=== PATIENT | female | born 1990 | race Hispanic/Latino ===

== ENCOUNTER 2017-05-15 19:57 | Outpatient (CLI) | payer BC, MEDICAID ==
[2017-05-15 20:08] VITALS: BP 111/68
== END 2017-05-16 00:20 | disposition home or self-care (01) ==
LOC: TRG 19:57
PROVIDERS: ATTEND Obstetrics & Gynecology
DX: O47.1 False labor at or after 37 completed weeks of gestation (principal); O99.333 Smoking (tobacco) complicating pregnancy, third trimester; F17.200 Nicotine dependence, unspecified, uncomplicated; Z3A.37 37 weeks gestation of pregnancy

== ENCOUNTER 2017-05-22 19:19 | Inpatient (IN) | payer BC, MEDICAID ==
--- NOTE | 2017-05-22 20:24 | History and Physical Report ---
History of Present Illness Date of examination: 05/22/17 History of present illness: Patient presented to labor and delivery complaining of contractions every 4-6 minutes for over an hour. Initial exam in triage 5 cm. Menstrual History Regularity: regular Menses every: 28-30 days Duration: 6 LMP: 08/23/2016 LMP reliability: definite LMP character: heavier test type: urine test BC at conception: none Planned ? yes EDC Calculations LMP: 05/30/2017 Past History : 2 Term Births: 1 Living Children: 1 Para: 1 Mult. Births: 0 Prev : 0 Prev. attempt? 0 Aborta: 0 Elect. Ab: 0 Spont. Ab: 0 Ectopics: 0 # 1 Delivery date: 2006 Weeks Gestation: 40+1 labor: no Delivery type: Delivery location: [facility] Sex: Male weight: 8#7 Comments: no complications Past Medical History: Anxiety Bipolar Disease Depression OCD - no currently on meds or in couseling Past Surgical History: ear tubes T&A - age 13 Past Medical History Surgery (Non-manager new product): ear tubes T&A - age 13 Abnormal PAP: negative AVA Exposure: negative Infertility: negative Uterine Anomaly: negative Uterine Surgery (not C/S): negative Other Gynecologic Problems: negative Family Hx: Father - HTN PGM - DM no fx breast, uterine or ovarian cancer Social Hx: works from home for [employer] no smoking, drinking or drug use. Infection History Hx of STD: chlamydia HIV Risk Eval: no Hepatitis B Risk Eval: low risk Personal hx. of genital herpes: no Partner hx. of genital herpes: no Rash, Viral, or Febrile illness since last LMP? no Varicella/Chicken Pox Status: Previous Disease Genetic History Congenital Heart Defect: Mom: no Dad: no Cailin Disease: Mom: no Dad: no Thalassemia Mom: no Dad: no Neural Tube Defect Mom: no Dad: no Down's Syndrome Mom: no Dad: no Jordi-Sachs Mom: no Dad: no Sickle Cell Disease/Trait Mom: no Dad: no Hemophilia Mom: no Dad: no Muscular Dystrophy Mom: no Dad: no Cystic Fibrosis Mom: no Dad: no Valier Chorea Mom: no Dad: no Mental Retardation Mom: no Dad: no Fragile X Mom: no Dad: no Other Genetic/Chromosomal Disorder Mom: no Dad: no Child w/other defect Mom: no Dad: no Enviromental Exposures Xray Exposure: no Medication, drug, or alcohol use since LMP: no Chemical/Other Exposure: no Exposure to Cat Liter: no Hx of Parvovirus (Fifth Disease): no Occupational Exposure to Children: none Current Allergies (reviewed today): No known allergies Past History Past Medical History: other (See HPI) Past Surgical History: other (See HPI) 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 TRIMMER History: other (See HPI) Family/Genetic History: other (See HPI) Social history: other (See HPI) - Obstetrical History Expected Date of Delivery: 05/30/17 Actual Gestation: 39 Week(s) 0 Day(s) : 2 Para: 1 Hx # Term Pregnancies: 1 Number of Pregnancies: 0 Spontaneous Abortions: 0 Induced : 0 Number of Living Children: 1 Medications and Allergies Allergies Allergy/AdvReac Type Severity Reaction Status Date / Time No Known Allergies Allergy Verified 05/22/17 20:45 Home Medications Medication Instructions Recorded Confirmed Last Taken Type Tablet 1 tab PO QDAY 05/22/17 05/22/17 05/22/17 09:00 History 1 - Vital Signs Vital signs: Vital Signs Pulse BP 81 110/71 05/22/17 19:40 05/22/17 19:40 Temp Pulse Resp BP Pulse Ox 98.3 F 81 18 110/71 05/22/17 19:43 05/22/17 19:43 05/22/17 19:43 05/22/17 19:43 - Physical Exam Breasts: Positive: deferred Cardiovascular: Regular rate Lungs: Positive: Normal air movement Abdomen: Positive: normal appearance, soft Cervix: Positive: other (per RN) Results Result Diagrams: 05/22/17 20:10 All other labs normal. Assessment and Plan - Patient Problems (1) Active labor at term Current Visit: Yes Status: Acute Plan to address problem: Admitted to labor and delivery follow labor protocol (2) Bipolar 1 disorder Current Visit: Yes Status: Chronic (3) Anxiety Current Visit: Yes Status: Chronic (4) Obsessive compulsive disorder Current Visit: Yes Status: Chronic Qualifiers: Obsessive-compulsive disorder type: unspecified Qualified Code(s): F42.9 - Obsessive-compulsive disorder, unspecified (5) Group B streptococcal carriage complicating Current Visit: Yes Status: Chronic Plan to address problem: Prophylactic antibiotics
[2017-05-22] MEDS ORDERED: LACTATED RINGERS 1,000 ML ONE (20:28)
[2017-05-22] MEDS ORDERED: STADOL IV PRN (20:31)
[2017-05-22] MEDS ORDERED: XYLOCAINE 2% INFILTRATI ONE (20:31)
[2017-05-22] MEDS ORDERED: BRETHINE SUB-Q PRN (20:31)
[2017-05-22] MEDS ORDERED: ePHEDrine SULFATE IV PRN ×2 (20:31→21:53)
[2017-05-22] MEDS ORDERED: PHENERGAN PO PRN (20:31)
[2017-05-22] MEDS: LACTATED RINGERS 1,000 ML IV SCH ×4 (20:51→23:08)
[2017-05-22 20:55] LABS: Hematocrit 36.1 % (30.3-42.9); Hemoglobin 12.2 gm/dl (10.1-14.3); Mean Corpuscular HGB Conc 34 % (30-34); Mean Corpuscular Hemoglobin 32 pg (28-32); Mean Corpuscular Volume 96 fl (79-97); Platelet Count 252 K/mm3 (140-440); Red Blood Count 3.77 M/mm3 (3.65-5.03); Red Cell Distribution Width 13.6 % (13.2-15.2)
[2017-05-22] MEDS ORDERED: NARCAN 2 MG/2 ML IV PRN (21:53)
[2017-05-22] MEDS ORDERED: fentaNYL-BUPIV 2 MCG/ML-0.125% 200 MCG/100 ML BAG EPIDURAL SCH (22:00)
[2017-05-22] MEDS ORDERED: AMPICILLIN/NS 1 GM/50 ML 1 GM/50 ML BAG IV SCH (22:00)
[2017-05-22] MEDS ORDERED: POLYCILLIN/NS 2 GM/100 ML 2 GM/100 ML BAG IV SCH (23:00)
--- NOTE | 2017-05-23 02:54 | Event Note ---
Date: 05/23/17 Patient's cervix now 6 cm 80% effaced -1 station. Artificial rupture of membranes revealed clear fluid and intrauterine pressure catheter and scalp electrode placed. We'll continue expectant management possible augmentation Pitocin
--- NOTE | 2017-05-23 05:29 | Progress Note ---
Assessment and Plan - Patient Problems (1) Active labor at term Onset Date: ~05/23/17 Current Visit: Yes Status: Acute Plan to address problem: Pt very anxious C/O urge to push SVE anterior lip, 100,0 Anticipate delivery. Pt has received 2 doses of antibiotic Subjective - Subjective Date of service: 05/23/17 (pt c/o urge to push) Principal diagnosis: IUP @ 39 weeks Labor; GBS+ Patient reports: movement normal Objective - Vital Signs Vital Signs: Vital Signs - 12hr 05/22/17 05/22/17 05/22/17 19:40 19:43 20:38 Temperature 98.3 F 98.9 F Pulse Rate 81 81 70 Respiratory 18 18 Rate Blood Pressure 110/71 Blood Pressure 110/71 110/80 [Left] O2 Sat by Pulse Oximetry 05/22/17 05/22/17 05/22/17 20:51 20:56 21:01 Temperature Pulse Rate 77 71 69 Respiratory Rate Blood Pressure Blood Pressure [Left] O2 Sat by Pulse 96 97 97 Oximetry 05/22/17 05/22/17 05/22/17 21:06 21:11 21:16 Temperature Pulse Rate 68 74 68 Respiratory Rate Blood Pressure Blood Pressure [Left] O2 Sat by Pulse 97 97 96 Oximetry 05/22/17 05/22/17 05/22/17 21:21 21:26 21:31 Temperature Pulse Rate 74 69 70 Respiratory Rate Blood Pressure Blood Pressure [Left] O2 Sat by Pulse 97 96 97 Oximetry 05/22/17 05/22/17 05/22/17 21:36 21:37 21:44 Temperature Pulse Rate 72 68 73 Respiratory Rate Blood Pressure 115/67 Blood Pressure [Left] O2 Sat by Pulse 97 98 Oximetry 05/22/17 05/22/17 05/22/17 21:49 21:54 21:57 Temperature Pulse Rate 69 71 71 Respiratory Rate Blood Pressure 96/60 Blood Pressure [Left] O2 Sat by Pulse 98 98 Oximetry 05/22/17 05/22/17 05/22/17 21:58 21:59 22:00 Temperature Pulse Rate 71 68 73 Respiratory Rate Blood Pressure 102/60 107/67 Blood Pressure [Left] O2 Sat by Pulse 98 Oximetry 05/22/17 05/22/17 05/22/17 22:02 22:04 22:06 Temperature Pulse Rate 74 101 H 82 Respiratory Rate Blood Pressure 108/66 108/71 112/75 Blood Pressure [Left] O2 Sat by Pulse 98 Oximetry 05/22/17 05/22/17 05/22/17 22:08 22:09 22:10 Temperature Pulse Rate 75 77 82 Respiratory Rate Blood Pressure 112/67 117/73 Blood Pressure [Left] O2 Sat by Pulse 97 Oximetry 05/22/17 05/22/17 05/22/17 22:13 22:14 22:17 Temperature Pulse Rate 113 H 109 H 81 Respiratory Rate Blood Pressure 121/76 115/56 Blood Pressure [Left] O2 Sat by Pulse 91 94 Oximetry 05/22/17 05/22/17 05/22/17 22:18 22:19 22:20 Temperature Pulse Rate 72 79 83 Respiratory Rate Blood Pressure 115/58 114/55 Blood Pressure [Left] O2 Sat by Pulse 97 Oximetry 05/22/17 05/22/17 05/22/17 22:22 22:24 22:26 Temperature Pulse Rate 76 71 73 Respiratory Rate Blood Pressure 108/54 116/54 112/55 Blood Pressure [Left] O2 Sat by Pulse 98 Oximetry 05/22/17 05/22/17 05/22/17 22:28 22:29 22:30 Temperature Pulse Rate 86 78 75 Respiratory Rate Blood Pressure 114/56 107/64 Blood Pressure [Left] O2 Sat by Pulse 98 Oximetry 05/22/17 05/22/17 05/22/17 22:33 22:34 22:36 Temperature Pulse Rate 81 79 74 Respiratory Rate Blood Pressure 114/63 105/59 111/60 Blood Pressure [Left] O2 Sat by Pulse 97 Oximetry 05/22/17 05/22/17 05/22/17 22:38 22:39 22:40 Temperature Pulse Rate 83 83 71 Respiratory Rate Blood Pressure 106/56 108/58 Blood Pressure [Left] O2 Sat by Pulse 96 Oximetry 05/22/17 05/22/17 05/22/17 22:42 22:44 22:46 Temperature Pulse Rate 72 73 70 Respiratory Rate Blood Pressure 106/59 105/57 100/56 Blood Pressure [Left] O2 Sat by Pulse 97 Oximetry 05/22/17 05/22/17 05/22/17 22:49 22:54 22:57 Temperature Pulse Rate 76 71 75 Respiratory Rate Blood Pressure 120/59 112/57 Blood Pressure [Left] O2 Sat by Pulse 97 97 Oximetry 05/22/17 05/22/17 05/22/17 22:59 23:01 23:02 Temperature Pulse Rate 72 68 69 Respiratory Rate Blood Pressure 106/56 101/56 Blood Pressure [Left] O2 Sat by Pulse 96 Oximetry 05/22/17 05/22/17 05/22/17 23:04 23:08 23:09 Temperature Pulse Rate 68 69 72 Respiratory Rate Blood Pressure 119/55 Blood Pressure [Left] O2 Sat by Pulse 96 98 Oximetry 05/22/17 05/22/17 05/22/17 23:14 23:19 23:21 Temperature Pulse Rate 64 65 67 Respiratory Rate Blood Pressure 107/56 Blood Pressure [Left] O2 Sat by Pulse 98 97 Oximetry 05/22/17 05/22/17 05/22/17 23:24 23:26 23:27 Temperature Pulse Rate 71 75 67 Respiratory Rate Blood Pressure 119/59 Blood Pressure [Left] O2 Sat by Pulse 96 93 Oximetry 05/22/17 05/22/17 05/22/17 23:29 23:32 23:34 Temperature Pulse Rate 68 67 65 Respiratory Rate Blood Pressure 109/62 Blood Pressure [Left] O2 Sat by Pulse 96 97 Oximetry 05/22/17 05/22/17 05/22/17 23:39 23:44 23:46 Temperature Pulse Rate 71 66 68 Respiratory Rate Blood Pressure 112/55 Blood Pressure [Left] O2 Sat by Pulse 92 96 94 Oximetry 05/22/17 05/22/17 05/22/17 23:49 23:51 23:54 Temperature Pulse Rate 69 68 69 Respiratory Rate Blood Pressure 111/53 Blood Pressure [Left] O2 Sat by Pulse 95 92 94 Oximetry 05/22/17 05/22/17 05/23/17 23:56 23:59 00:04 Temperature Pulse Rate 68 66 69 Respiratory Rate Blood Pressure 106/63 Blood Pressure [Left] O2 Sat by Pulse 96 95 Oximetry 05/23/17 05/23/17 05/23/17 00:09 00:10 00:14 Temperature Pulse Rate 71 68 65 Respiratory Rate Blood Pressure 107/54 Blood Pressure [Left] O2 Sat by Pulse 96 94 95 Oximetry 05/23/17 05/23/17 05/23/17 00:16 00:19 00:24 Temperature Pulse Rate 71 67 66 Respiratory Rate Blood Pressure Blood Pressure [Left] O2 Sat by Pulse 94 95 97 Oximetry 05/23/17 05/23/17 05/23/17 00:25 00:28 00:29 Temperature Pulse Rate 66 70 65 Respiratory Rate Blood Pressure 91/50 Blood Pressure [Left] O2 Sat by Pulse 94 95 Oximetry 05/23/17 05/23/17 05/23/17 00:32 00:34 00:37 Temperature Pulse Rate 70 65 70 Respiratory Rate Blood Pressure Blood Pressure [Left] O2 Sat by Pulse 94 95 94 Oximetry 05/23/17 05/23/17 05/23/17 00:39 00:43 00:44 Temperature Pulse Rate 68 72 73 Respiratory Rate Blood Pressure Blood Pressure [Left] O2 Sat by Pulse 96 94 95 Oximetry 05/23/17 05/23/17 05/23/17 00:49 00:53 00:54 Temperature Pulse Rate 68 68 74 Respiratory Rate Blood Pressure Blood Pressure [Left] O2 Sat by Pulse 95 94 94 Oximetry 05/23/17 05/23/17 05/23/17 00:58 00:59 01:04 Temperature Pulse Rate 66 64 70 Respiratory Rate Blood Pressure Blood Pressure [Left] O2 Sat by Pulse 94 94 95 Oximetry 05/23/17 05/23/17 05/23/17 01:06 01:09 01:12 Temperature Pulse Rate 58 L 64 57 L Respiratory Rate Blood Pressure Blood Pressure [Left] O2 Sat by Pulse 94 94 93 Oximetry 05/23/17 05/23/17 05/23/17 01:14 01:17 01:19 Temperature Pulse Rate 64 60 65 Respiratory Rate Blood Pressure Blood Pressure [Left] O2 Sat by Pulse 95 94 93 Oximetry 05/23/17 05/23/17 05/23/17 01:20 01:23 01:24 Temperature 98.6 F Pulse Rate 67 63 67 Respiratory 16 Rate Blood Pressure Blood Pressure 102/58 [Left] O2 Sat by Pulse 95 94 95 Oximetry 05/23/17 05/23/17 05/23/17 01:25 01:29 01:32 Temperature Pulse Rate 67 64 69 Respiratory Rate Blood Pressure 102/58 Blood Pressure [Left] O2 Sat by Pulse 96 94 Oximetry 05/23/17 05/23/17 05/23/17 01:34 01:39 01:44 Temperature Pulse Rate 73 65 65 Respiratory Rate Blood Pressure Blood Pressure [Left] O2 Sat by Pulse 96 94 97 Oximetry 05/23/17 05/23/17 05/23/17 01:45 01:49 01:54 Temperature Pulse Rate 70 69 64 Respiratory Rate Blood Pressure 99/54 Blood Pressure [Left] O2 Sat by Pulse 96 97 Oximetry 05/23/17 05/23/17 05/23/17 01:59 02:04 02:09 Temperature Pulse Rate 66 82 61 Respiratory Rate Blood Pressure Blood Pressure [Left] O2 Sat by Pulse 97 99 95 Oximetry 05/23/17 05/23/17 05/23/17 02:14 02:15 02:19 Temperature Pulse Rate 70 66 76 Respiratory Rate Blood Pressure Blood Pressure [Left] O2 Sat by Pulse 97 94 95 Oximetry 05/23/17 05/23/17 05/23/17 02:24 02:27 02:29 Temperature Pulse Rate 71 71 75 Respiratory Rate Blood Pressure Blood Pressure [Left] O2 Sat by Pulse 94 94 95 Oximetry 05/23/17 05/23/17 05/23/17 02:34 02:39 02:44 Temperature Pulse Rate 66 69 64 Respiratory Rate Blood Pressure Blood Pressure [Left] O2 Sat by Pulse 94 94 97 Oximetry 05/23/17 05/23/17 05/23/17 02:45 02:49 02:54 Temperature Pulse Rate 68 72 65 Respiratory Rate Blood Pressure 102/58 Blood Pressure [Left] O2 Sat by Pulse 97 97 Oximetry 05/23/17 05/23/17 05/23/17 02:59 03:04 03:09 Temperature Pulse Rate 66 62 63 Respiratory Rate Blood Pressure Blood Pressure [Left] O2 Sat by Pulse 97 97 97 Oximetry 05/23/17 05/23/17 05/23/17 03:14 03:19 03:24 Temperature Pulse Rate 68 63 67 Respiratory Rate Blood Pressure Blood Pressure [Left] O2 Sat by Pulse 97 97 96 Oximetry 05/23/17 05/23/17 05/23/17 03:29 03:34 03:39 Temperature Pulse Rate 66 62 63 Respiratory Rate Blood Pressure Blood Pressure [Left] O2 Sat by Pulse 96 98 97 Oximetry 05/23/17 05/23/17 05/23/17 03:44 03:49 03:54 Temperature Pulse Rate 63 67 63 Respiratory Rate Blood Pressure 104/64 Blood Pressure [Left] O2 Sat by Pulse 97 96 96 Oximetry 05/23/17 05/23/17 05/23/17 03:59 04:04 04:09 Temperature Pulse Rate 64 63 65 Respiratory Rate Blood Pressure Blood Pressure [Left] O2 Sat by Pulse 96 97 97 Oximetry 05/23/17 05/23/17 05/23/17 04:14 04:19 04:24 Temperature Pulse Rate 63 66 70 Respiratory Rate Blood Pressure Blood Pressure [Left] O2 Sat by Pulse 96 94 97 Oximetry 05/23/17 05/23/17 05/23/17 04:29 04:30 04:34 Temperature Pulse Rate 65 67 70 Respiratory Rate Blood Pressure Blood Pressure [Left] O2 Sat by Pulse 98 94 96 Oximetry 05/23/17 05/23/17 05/23/17 04:39 04:44 04:46 Temperature Pulse Rate 69 76 69 Respiratory Rate Blood Pressure 102/56 Blood Pressure [Left] O2 Sat by Pulse 96 98 Oximetry 05/23/17 05/23/17 05/23/17 04:49 04:54 04:56 Temperature Pulse Rate 75 67 72 Respiratory Rate Blood Pressure Blood Pressure [Left] O2 Sat by Pulse 96 97 94 Oximetry 05/23/17 05/23/17 05/23/17 04:59 05:01 05:04 Temperature Pulse Rate 69 69 70 Respiratory Rate Blood Pressure Blood Pressure [Left] O2 Sat by Pulse 97 94 96 Oximetry 05/23/17 05/23/17 05/23/17 05:08 05:09 05:14 Temperature Pulse Rate 75 74 68 Respiratory Rate Blood Pressure Blood Pressure [Left] O2 Sat by Pulse 93 97 97 Oximetry 05/23/17 05/23/17 05/23/17 05:15 05:19 05:24 Temperature Pulse Rate 70 67 72 Respiratory Rate Blood Pressure Blood Pressure [Left] O2 Sat by Pulse 93 96 98 Oximetry - Exam Breasts: deferred Cardiovascular: Regular rate Lungs: Normal air movement Abdomen: Present: normal appearance, soft. Absent: distention, tenderness Vulva: both: normal Uterus: Present: normal FHR: auscultation normal, category 1 Uterine Contraction Monitor Mode: External Cervical Dilatation: 9.7 Cervical Effacement Percentage: 100 station: 0 Uterine Contraction Pattern: Regular Uterine Tone Measurement Phase: Resting Uterine Contraction Intensity: Moderate Extremities: normal Deep Tendon Reflex Grade: Normal +2 - Labs Labs: Abnormal Labs 05/22/17 20:10 WBC 12.0 H Laboratory Results - last 24 hr 04/01/18 04/01/18 20:10 20:10 WBC 12.0 H RBC 3.77 Hgb 12.2 Hct 36.1 MCV 96 MCH 32 MCHC 34 RDW 13.6 Plt Count 252 Blood Type A POSITIVE Antibody Screen Negative
[2017-05-23] MEDS: PITOCin/NS 20 UNIT/1000ML DRIP 20 UNITS/1,000 ML BAG IV SCH ×2 (05:55→06:38)
[2017-05-23] MEDS ORDERED: TUCKS PAD TP PRN (06:00)
[2017-05-23] MEDS ORDERED: SODIUM CHLORIDE FLUSH SYRINGE 10 ML IV PRN (06:00)
[2017-05-23] MEDS ORDERED: DULCOLAX PR PRN (06:00)
[2017-05-23] MEDS ORDERED: TORADOL IV PRN (06:00)
[2017-05-23] MEDS ORDERED: MILK OF MAGNESIA PO PRN (06:00)
[2017-05-23] MEDS ORDERED: ZOFRAN IV PRN (06:00)
[2017-05-23] MEDS ORDERED: LANSINOH TP PRN (06:00)
[2017-05-23] MEDS ORDERED: BENADRYL PO PRN (06:00)
--- NOTE | 2017-05-23 06:08 | Procedure Note ---
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 Pit IVFs 8/9, EBL 300, Wgt 8-8 Mom and baby remain LDR stable - A at 1 minute: 8 at 5 minutes: 9 Infant Gender: Female (wgt 8-8)
[2017-05-23] MEDS: MOTRIN PO SCH ×3 (09:11→22:33)
[2017-05-23] MEDS ORDERED: NORCO 5/325 PO NR (10:00)
[2017-05-23 19:18] LABS: Hematocrit 31.6 % (30.3-42.9); Hemoglobin 10.6 gm/dl (10.1-14.3)
[2017-05-24] MEDS: MOTRIN PO SCH (05:16)
[2017-05-24] MEDS ORDERED: M-M-R II VACCINE SUB-Q ONE (06:00)
[2017-05-24] MEDS ORDERED: BOOSTRIX IM ONE (06:00)
--- NOTE | 2017-05-24 07:56 | Discharge Summary ---
Providers - Providers Date of Admission: 05/22/17 20:25 Date of discharge: 05/24/17 (desires d/c home) Attending physician: ALFREDO RINCON 05/23/17 13:20 Consult to Case Management [CONS] Routine Services Needed at Discharge: Implant Polisher Notified:: Mikki Phone number called:: [phone] Was contact made?: Yes If yes, spoke with:: Mikki Primary care physician: ALFREDO RINCON Hospitalization Reason for admission: Labor Condition: Good Procedures: uncomplicated vaginal delivery Hospital course: uncomplicated labor, delivery and course Disposition: DC- TO HOME OR SELFCARE - Discharge Diagnoses (1) Spontaneous vaginal delivery Status: Acute Core Measure Documentation - Palliative Care Palliative Care/ Comfort Measures: Not Applicable - Core Measures Any of the following diagnoses?: none Exam - Constitutional Vitals: Temp Pulse Resp BP Pulse Ox 98.4 F 64 20 97/57 96 05/24/17 00:24 05/24/17 00:24 05/24/17 05:16 05/24/17 00:24 05/24/17 00:24 General appearance: Present: no acute distress, well-nourished - EENT Eyes: Present: PERRL ENT: hearing intact, clear oral mucosa - Neck Neck: Present: supple, normal ROM - Respiratory Respiratory effort: normal Respiratory: bilateral: CTA - Cardiovascular Heart Sounds: Present: S1 & S2. Absent: rub, click - Extremities Extremities: pulses symmetrical, No edema Peripheral Pulses: within normal limits - Abdominal General gastrointestinal: Present: soft, non-tender, non-distended, normal bowel sounds Female genitourinary: Present: normal - Integumentary Integumentary: Present: clear, warm, dry - Musculoskeletal Musculoskeletal: gait normal, strength equal bilaterally - Psychiatric Psychiatric: appropriate mood/affect, intact judgment & insight - Neurologic Neurologic: CNII-XII intact, moves all extremities - Additional findings Additional findings: patient doing well, request d/c home today. Lochia scant, Fundus firm, , VSSAF, H&H 10.6/31.6. plan for tubal ligation, f/u 4 weeks in office. Plan Activity: no restrictions Diet: regular Follow up with: ALFREDO RINCON MD [Primary Care Provider] - 06/27/17 (Congratulation! Please call [phone] to schedule your visit in 4 weeks. Call for any questions or concerns.)
[2017-05-24] MEDS: TYLENOL PO PRN ×2 (08:13→14:14)
[2017-05-24 12:19] VITALS: BP 100/55
== END 2017-05-24 16:30 | disposition home or self-care (01) | DRG 775 ==
LOC: TRG 19:19 → LD 20:25 → OB 05-23 08:54
PROVIDERS: ADMIT Obstetrics & Gynecology; ATTEND Obstetrics & Gynecology
PROC: 10E0XZZ Delivery of Products of Conception, External Approach (ICD-10-PCS; principal; 2017-05-23)
PROC: 3E0R3BZ Introduction of Anesthetic Agent into Spinal Canal, Percutaneous Approach (ICD-10-PCS; 2017-05-23)
PROC: 00HU33Z Insertion of Infusion Device into Spinal Canal, Percutaneous Approach (ICD-10-PCS; 2017-05-23)
PROC: 3E0234Z Introduction of Serum, Toxoid and Vaccine into Muscle, Percutaneous Approach (ICD-10-PCS; 2017-05-23)
DX: O69.81X0 Labor and delivery complicated by cord around neck, without compression, not applicable or unspecified (principal); O99.344 Other mental disorders complicating childbirth; F41.9 Anxiety disorder, unspecified; F31.9 Bipolar disorder, unspecified; O99.824 Streptococcus B carrier state complicating childbirth; F42.9 Obsessive-compulsive disorder, unspecified; Z3A.39 39 weeks gestation of pregnancy; Z37.0 Single live birth; Z23 Encounter for immunization
CPT/HCPCS: 36415; 85014; 85018; 85027; 86850; 86900; 86901; 90471; 90707; 90715; 99211; A6250; G0463; J0290; J2590; J7120

== ENCOUNTER 2017-07-15 09:03 | Day surgery (SDC) | payer BC, MEDICAID ==
--- NOTE | 2017-07-14 16:11 | History and Physical Report ---
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 Infection History Hx of STD: chlamydia HIV Risk Eval: no Hepatitis B Risk Eval: low risk Personal hx. of genital herpes: no Partner hx. of genital herpes: no Rash, Viral, or Febrile illness since last LMP? no Varicella/Chicken Pox Status: Previous Disease Genetic History Congenital Heart Defect: Mom: no Dad: no Cailin Disease: Mom: no Dad: no Thalassemia Mom: no Dad: no Neural Tube Defect Mom: no Dad: no Down's Syndrome Mom: no Dad: no Jordi-Sachs Mom: no Dad: no Sickle Cell Disease/Trait Mom: no Dad: no Hemophilia Mom: no Dad: no Muscular Dystrophy Mom: no Dad: no Cystic Fibrosis Mom: no Dad: no [place] Chorea Mom: no Dad: no Mental Retardation Mom: no Dad: no Fragile X Mom: no Dad: no Other Genetic/Chromosomal Disorder Mom: no Dad: no Child w/other defect Mom: no Dad: no Enviromental Exposures Xray Exposure: no Medication, drug, or alcohol use since LMP: no Chemical/Other Exposure: no Exposure to Cat Liter: no Hx of Parvovirus (Fifth Disease): no Occupational Exposure to Children: none Active Medications (reviewed today): None Current Allergies (reviewed today): No known allergies Past History Past Medical History: other (see hpi) Past Surgical History: other (see hpi) [employer] History: denies: other (see hpi) Family/Genetic History: denies: other (see hpi) - Obstetrical History : 2 Para: 2 Number of Living Children: 2 Medications and Allergies Allergies Allergy/AdvReac Type Severity Reaction Status Date / Time No Known Allergies Allergy Verified 05/22/17 20:45 Home Medications Medication Instructions Recorded Confirmed Last Taken Type Tablet 1 tab PO QDAY 05/22/17 05/22/17 05/22/17 09:00 History 1 Ibuprofen [Motrin 800 MG tab] 800 mg PO Q8HR PRN #30 tablet 05/24/17 Unknown Rx Review of Systems All systems: negative - Physical Exam Breasts: Positive: deferred Cardiovascular: Normal S1, Normal S2 Lungs: Positive: Clear to auscultation, Normal air movement Abdomen: Positive: normal appearance, soft. Negative: distention, tenderness, guarding Genitourinary (Female): Positive: other (deferred until eua) Deep Tendon Reflex Grade: Normal +2 Results All other labs normal. Assessment and Plan - Patient Problems (1) Encounter for sterilization Status: Acute Plan to address problem: -I d/w methods of tubal ligation. All risk/benefits/alternatives were d/w pt and questions were addressed and answered. Pt desies a salpingectomy. Consent signed and placed on the chart. -to OR for laproscopic salpingectomy
[~2017-07-15 09:03] MED LIST: ANCEF/STERILE WATER 2 GM/20 ML 2 GM/20 ML SYRINGE IV NR
[2017-07-15] MEDS ORDERED: LACTATED RINGERS 1,000 ML ONE (09:43)
--- NOTE | 2017-07-15 10:17 | Anesthesia Consultation ---
Anesthesia Consult and Med Hx Date of service: 07/15/17 - Airway Anesthetic Teeth Evaluation: Good ROM Head & Neck: Adequate Mallampati Class: Class II - Pulmonary Exam CTA: Yes - Cardiac Exam Cardiac Exam: RRR - Pre-Operative Health Status ASA Pre-Surgery Classification: ASA2 Proposed Anesthetic Plan: General - Pre-Anesthesia Comment Pre-Anesthesia Comments: weeks post - Pulmonary Hx Smoking: Yes Hx Asthma: No COPD: No Hx Pneumonia: No - Cardiovascular System Hx Hypertension: No - Central Nervous System Hx Seizures: No Hx Psychiatric Problems: No - Endocrine Hx Renal Disease: No Hx End Stage Renal Disease: No Hx Hypothyroidism: No Hx Hyperthyroidism: No - Hematic Hx Anemia: No Hx Sickle Cell Disease: No - Other Systems Hx Alcohol Use: No Hx Cancer: No
--- NOTE | 2017-07-15 10:18 | Anesthesia Day of Surgery ---
Anesthesia Day of Surgery - Day of Surgery Patient Examined: Yes Patient H&P Reviewed: Yes Patient is NPO: Yes Beta Blockers: No Cardiac Clearance: No Pulmonary Clearance: No
[2017-07-15] MEDS ORDERED: DIPRIVAN 10 MG/ML IV ONE (10:21)
[2017-07-15] MEDS ORDERED: ZOFRAN ONE (10:22)
[2017-07-15] MEDS ORDERED: XYLOCAINE CARDIAC IV ONE (10:22)
[2017-07-15] MEDS ORDERED: DECADRON ONE (10:22)
[2017-07-15] MEDS ORDERED: QUELICIN ONE (10:22)
[2017-07-15] MEDS ORDERED: ZEMURON IV ONE (10:22)
[2017-07-15] MEDS ORDERED: SUBLIMAZE ONE (10:23)
[2017-07-15] MEDS ORDERED: LACTATED RINGERS 1,000 ML IV SCH (11:00)
[2017-07-15] MEDS ORDERED: MARCAINE 0.5% INFILTRATI ONE (11:51)
[2017-07-15] MEDS ORDERED: NACL 0.9% IR ONE (11:51)
[2017-07-15] MEDS ORDERED: TORADOL ONE (12:25)
[2017-07-15] MEDS ORDERED: NEOSTIGMINE ONE (12:26)
[2017-07-15] MEDS ORDERED: ROBINUL ONE (12:26)
--- NOTE | 2017-07-15 12:34 | Operative Report ---
Operative Report Operative Report: Date of procedure: 07/15/2017 Pre-operative diagnosis: Desires permanent sterilization Post-operative diagnosis: Same Procedure name(s): Laparoscopic bilateral salpingectomy Surgeon: Dr. Plummer Student Nurse: MIKE Anesthesia: Gen. endotracheal anesthesia EBL: Minimal Urine output: 300 mL of clear urine out prior to the onset of the procedure via straight catheterization Fluids: 900 mL Findings: Normal fallopian tubes and ovaries bilaterally Normal uterus Normal cervix Specimen: Portions of left and right fallopian tube. Indications: Patient desired permanent sterilization. All risks benefits and alternatives were discussed with patient. Benefits to salpingectomy were also discussed with patient. Patient desired to have bilateral salpingectomy. Consents were signed and placed on the chart. Patient was given ample time to answer questions prior to signing consent. Procedure: Patient was taken to the operating room and which she was placed under general endotracheal anesthesia. Patient was then prepped and draped in sterile fashion and placed in dorsal lithotomy position in Reinier stirrups. Attention was then turned to the vagina in which a Humi uterine manipulator was placed. Patient underwent straight catheterization. Attention was then turned to the umbilicus and which an infraumbilical incision was made with the scalpel 5mm trocar was placed using direct visualization with the camera. Abdomen was then insufflated with gas. Under direct visualization a second and third 5 mm trocar were placed. The left fallopian tube was grasp with the grasper elevated transected with the [place] tip LigaSure device after cauterization. Portion of left tube was passed off to pathology. Excellent hemostasis was noted. This was repeated on the right side. With portion of right fallopian tube passed off to pathology. Excellent hemostasis was noted. After tubal ligation was completed all instruments were removed from the abdomen under direct visualization. All gas was also released from the abdomen.The skin was approximated with 4-0 Monocryl in a subcuticular stitch. All incisions were injected with Marcaine plain. Approximately 9/2 mL issues. The patient tolerated procedure well. Sponge, lap, and needle counts were all correct x3 the patient was taken to the recovery room awake and in stable condition.
--- NOTE | 2017-07-15 12:34 | Short Stay Summary ---
Short Stay Documentation Date of service: 07/15/17 - History H&P: dictated - Allergies and Medications Current Medications: Allergies No Known Allergies Allergy (Verified 05/22/17 20:45) Home Medications Medication Instructions Recorded Confirmed Last Taken Type Tablet 1 tab PO QDAY 05/22/17 07/15/17 07/14/17 09:00 History Ibuprofen [Motrin 800 MG tab] 800 mg PO Q8HR PRN #30 tablet 05/24/17 07/15/17 Unknown Rx Ibuprofen 800 mg PO Q6HR #30 tablet 07/15/17 Unknown Rx oxyCODONE /ACETAMINOPHEN [Percocet 1 tab PO Q4HR #30 tab 07/15/17 Unknown Rx 5/325] Active Medications Hydromorphone HCl (Dilaudid) 0.5 mg IV Q10MIN PRN PRN Reason: Pain , Severe (7-10) Stop: 07/15/17 18:00 Cefazolin Sodium (Ancef/Sterile Water 2 Gm/20 Ml) 2 gm in 20 mls @ 80 mls/hr IV PREOP NR; Protocol Stop: 07/15/17 23:59 Lactated Ringer's (Lactated Ringers) 1,000 mls @ 75 mls/hr IV DIRECT BONNIE - Physical exam Breasts: deferred - Brief post op/procedure progress note Date of procedure: 07/15/17 Pre-op diagnosis: desires permanent sterilization Post-op diagnosis: same Procedure: Bilateral salpingectomy Anesthesia: GETA Findings: See operative report Surgeon: GRAYSON ECHEVARRIA Estimated blood loss: minimal Pathology: list (portions of left and right fallopian tube) Specimen disposition: to lab Condition: stable - Hospital course Hospital course: Patient presents for above-stated procedure. Patient underwent above-stated procedure that was not complicated. Patient will have recovery in the PACU. Once discharge criteria has been met, patient would be discharged to home. Patient has follow-up appointment set with provider in the next 1-2 weeks. Prescriptions on the chart. - Disposition Condition at discharge: Good Disposition: [id number] TO HOME OR SELFCARE - Discharge Diagnoses (1) Encounter for sterilization Status: Acute Short Stay Discharge Plan Activity: no restrictions Weight Bearing Status: Weight Bear as Tolerated Diet: regular Follow up with: ALFREDO RINCON MD [Primary Care Provider] - 7 Days Prescriptions: Ibuprofen 800 mg PO Q6HR #30 tablet oxyCODONE /ACETAMINOPHEN [Percocet 5/325] 1 tab PO Q4HR #30 tab
[2017-07-15] MEDS: DILAUDID IV PRN ×4 (12:50→14:25)
[2017-07-15] MEDS ORDERED: PERCOCET 5/325 PO ONE (14:15)
--- NOTE | 2017-07-15 14:24 | Post Anesthesia Evaluation ---
- Post Anesthesia Evaluation Patient Participated: Yes Airway Patent: Yes Stable Respiratory Function: Yes Nausea/Vomiting: No Temp > 96.8F: Yes Pain Manageable: Yes Adequeate Hydration: Yes Anesthesia Complications: No
[2017-07-15 16:18] VITALS: BP 93/52
== END 2017-07-15 15:40 | disposition home or self-care (01) ==
LOC: OR 09:03
PROVIDERS: ATTEND Obstetrics & Gynecology
DX: Z30.2 Encounter for sterilization (principal); N83.8 Other noninflammatory disorders of ovary, fallopian tube and broad ligament; F31.9 Bipolar disorder, unspecified; F41.9 Anxiety disorder, unspecified; F17.200 Nicotine dependence, unspecified, uncomplicated; Z98.890 Other specified postprocedural states
CPT/HCPCS: 58661; 81025; 88302; J0330; J0690; J1100; J1170; J1885; J2001; J2405; J2704; J2710; J3010; J7120